=== PATIENT | male | born 1935 | race Caucasian/White ===

== ENCOUNTER 2017-08-14 02:55 | Emergency (ER) | payer OTHER, SELFPAY ==
--- NOTE | 2017-08-14 03:02 | DI.RAD.S_ITS ---
PROCEDURE: XR CHEST 1V INDICATIONS: Shortness of breath and chest pain TECHNIQUE: One view of the chest was acquired. COMPARISON: None. FINDINGS: Surgical changes and devices: Status post CABG. Lungs and pleura: No pleural effusions or pneumothorax. Lungs are clear. Mediastinum: Mediastinal contours appear normal. Heart size is normal. Bones and chest wall: No suspicious bony lesions. Overlying soft tissues appear unremarkable. IMPRESSION: No acute cardiopulmonary disease process. Dictated by: Osiris Dixon MD, PhD on 08/14/2017 at 8:07 Approved by: Osiris Dixon MD, PhD on 08/14/2017 at 8:07
[2017-08-14 03:03] VITALS: BP 150/72; PULSE 65; RESP 14; TEMP 36; O2SAT 100; BMI 24.3
--- NOTE | 2017-08-14 03:03 | ED_ITS ---
HPI - Chest Pain General Chief Complaint: Chest Pain Stated Complaint: chest pressure, shortness of breath, has angina Time Seen by Provider: 08/14/17 03:01 Source: patient Mode of arrival: ambulatory Limitations: no limitations History of Present Illness HPI narrative: 82-year-old male here for evaluation of chest pressure. Patient states that he had a coronary artery bypass graft 28 years ago. He has also had a fem-pop vascular graft in the past. Patient states that he has not had any cardiovascular issue since his bypass graft almost 3 decades ago. Patient states that he normally walks every day. He states that he went on a vacation and did not do his normal walks. Return to those normal walks yesterday. He states that during the walk yesterday he developed chest pressure which resolved when he slowed down and quit. Did not have any other symptoms associated with that and did not have any other symptoms for the rest of the day. He states that he was woken at 1 o'clock this morning with chest pressure. Patient describes it as ?angina. Denies any other symptoms. States that the pressure is a 4/10. Does take an aspirin every day. Is not on Plavix. Is a [id number] diabetic. Related Data Home Medications Medication Instructions Recorded Confirmed aspirin 81 mg PO DAILY 08/14/17 08/14/17 atorvastatin 08/14/17 lisinopril 10 mg PO DAILY 08/14/17 08/14/17 metformin 850 mg PO QID 08/14/17 08/14/17 Previous Rx's Medication Instructions Recorded cephalexin [Keflex] 500 mg PO TID #21 cap 12/17/16 Allergies Allergy/AdvReac Type Severity Reaction Status Date / Time azithromycin [AZITHROMYCIN] Allergy Mild rash Verified 08/14/17 03:10 Penicillins [PENICILLINS] Allergy Mild rash Verified 08/14/17 03:10 Review of Systems Constitutional Denies chills, Denies fever(s), Denies lethargy and Denies weakness ENT Ears, Nose, Mouth, and Throat: Denies vertigo and Denies dizziness Cardiovascular Reports chest pain, Reports chest pain at rest, Reports chest pain with activity , Denies syncope, Denies rapid heart rate, Denies pedal edema, Denies edema, Denies irregular heart rhythm, Denies lightheadedness and Denies dyspnea Respiratory Denies cough, Denies pain on inspiration, Denies pain with cough and Denies dyspnea Gastrointestinal Gastrointestinal: Denies diarrhea, Denies nausea and Denies vomiting Genitourinary Denies dysuria and Denies flank pain Musculoskeletal Denies myalgias and Denies arthralgias Integumentary/Breasts Denies pruritus, Denies erythema, Denies rash and Denies wounds Neurologic Denies abnormal speech, Denies confusion, Denies vertigo, Denies dizziness, Denies syncope and Denies weakness Psychiatric Denies confusion Hematologic/Lymphatic Denies easy bruising [facility] Social History Smoking Status: Former smoker Exam Initial Vital Signs Initial Vital Signs: Vital Signs Temperature 96.8 F L 08/14/17 03:03 Pulse Rate 65 08/14/17 03:03 Respiratory Rate 14 08/14/17 03:03 Blood Pressure 150/72 H 08/14/17 03:03 Pulse Oximetry 100 08/14/17 03:03 Const General: cooperative, healthy appearing, comfortable and well developed Nutritional Appearance: well nourished Orientation: alert, awake, oriented x3 and not confused HENWI Head: normocephalic and atraumatic Ears: external ears normal and TM's normal bilaterally Nose: external nose normal and No nasal discharge Face and sinus: sinuses nontender, face symmetric, no sinus tenderness and No dry mucous membranes Mouth: oral mucosae normal and moist mucous membranes Teeth and gingiva: dentition normal Throat: tonsils normal and uvula midline Chest Chest: normal inspection of the chest Resp Effort & Inspection: normal respiratory effort, able to speak in complete sentences, no respiratory distress and no use of accessory muscles Auscultation: clear to auscultation bilaterally, no rales, no rhonchi and no wheezes Cardio Rate: regular rate Rhythm: regular rhythm Heart Sounds: no click, no gallops, no murmurs and no rubs Pulses: normal peripheral pulses GI Inspection: non-distended Palpation: soft, no hepatosplenomegaly, No guarding, No pulsatile mass and No tender Auscultation: normal bowel sounds Back/Spine/Pelvis Back: No CVA tenderness Skin General: no rashes or lesions noted, No jaundice and No petechiae Other: Well-healed midline surgical scar of his chest consistent with his stated history Will healed bilateral lower extremity scars consistent with stated surgical history Neuro General: alert, oriented x3, gait normal and no focal motor deficits Speech: speech normal Gait: normal gait Motor: muscle tone normal throughout Sensory Exam: no sensory deficits noted Extrem General: full ROM, no clubbing, cyanosis or edema, no pedal edema, no calf tenderness and No edema Course Orders Ordered: ED Orders 08/14/17 03:02 XR chest 1V Stat 08/14/17 03:03 EKG-12 Lead Stat 08/14/17 03:20 B Type Natriuretic Peptide Stat Basic Metabolic Panel Stat Complete Blood Count AUTO DIFF Stat Partial Thromboplastin Time Stat Prothrombin Time INR Stat Troponin I Stat Heparin Sodium/Dextrose (Heparin Drip) 25,000 unit in 500 mls @ 18.507 mls/hr IV CONT SIRI; Protocol Last Admin: 08/14/17 05:07 Dose: 12 units/kg/hr, 18.507 mls/hr Discontinued Medications Aspirin (Aspirin Chew) 324 mg PO NOW ONE Stop: 08/14/17 03:03 Last Admin: 08/14/17 03:21 Dose: 324 mg Heparin Sodium (Porcine) (Heparin) 4,600 unit 60 unit/kg (4600 unit) IV NOW ONE Stop: 08/14/17 04:35 Last Admin: 08/14/17 05:06 Dose: 4,600 unit Nitroglycerin (Nitro-Bid) 1 inch TOP NOW ONE Stop: 08/14/17 03:13 Last Admin: 08/14/17 03:21 Dose: 1 inch Vital Signs - 8 hr 08/14/17 03:03 08/14/17 03:21 08/14/17 03:30 Temperature 96.8 F L Pulse Rate 65 57 L 62 Respiratory Rate 14 12 Blood Pressure 150/72 H 150/67 H Blood Pressure [Left Arm] 140/53 H Pulse Oximetry 100 100 08/14/17 04:27 08/14/17 05:06 Temperature Pulse Rate 57 L 62 Respiratory Rate 14 Blood Pressure 140/54 H Blood Pressure [Left Arm] 141/61 H Pulse Oximetry 99 MDM - Chest Pain Lab Data Attestation: I reviewed the patient's lab results. Result diagrams: 08/14/17 03:20 08/14/17 03:20 Lab Results 08/14/17 08/14/17 08/14/17 Range/Units 03:20 03:20 03:20 WBC 5.1 (4.5-11.0) X10^3/uL RBC 4.36 L (4.5-5.9) X10^6/uL Hgb 13.8 (13.5-17.5) g/dL Hct 40.8 L (41-53) % MCV 93.4 (80-100) fL MCH 31.7 (26-34) PG MCHC 33.9 (30-36) % RDW 13.5 (11.6-14.8) % Plt Count 195 (150-400) X10^3/uL Neut % (Auto) 57.4 (50-75) % Lymph % (Auto) 31.0 (25-40) % [place] % (Auto) 7.4 (3-14) % Eos % (Auto) 3.2 (2-4) % Baso % (Auto) 1.0 (0-2) % Neut # (Auto) 2900 L (4812-5039) /uL PT 11.5 (10.1-12.7) SECONDS INR 1.1 (0.9-1.3) APTT 31 (26.4-36.2) SECONDS Sodium 140 (137-145) mmol/L Potassium 4.3 (3.4-5.1) mmol/L Chloride 101 (98-107) mmol/L Carbon Dioxide 28 (22-32) mmol/L BUN 21 H (9-20) mg/dL Creatinine 0.70 (0.66-1.25) mg/dL Estimated GFR > 60.0 (>60) mL/min BUN/Creatinine Ratio 30.0 H (6-22) Glucose 116 H (80-110) mg/dL Calcium 9.5 (8.4-10.2) mg/dL Troponin I (0.01-0.034) ng/mL B-Natriuretic Peptide 75.7 (<100) 08/14/17 Range/Units 03:20 WBC (4.5-11.0) X10^3/uL RBC (4.5-5.9) X10^6/uL Hgb (13.5-17.5) g/dL Hct (41-53) % MCV (80-100) fL MCH (26-34) PG MCHC (30-36) % RDW (11.6-14.8) % Plt Count (150-400) X10^3/uL Neut % (Auto) (50-75) % Lymph % (Auto) (25-40) % [place] % (Auto) (3-14) % Eos % (Auto) (2-4) % Baso % (Auto) (0-2) % Neut # (Auto) (0997-6242) /uL PT (10.1-12.7) SECONDS INR (0.9-1.3) APTT (26.4-36.2) SECONDS Sodium (137-145) mmol/L Potassium (3.4-5.1) mmol/L Chloride (98-107) mmol/L Carbon Dioxide (22-32) mmol/L BUN (9-20) mg/dL Creatinine (0.66-1.25) mg/dL Estimated GFR (>60) mL/min BUN/Creatinine Ratio (6-22) Glucose (80-110) mg/dL Calcium (8.4-10.2) mg/dL Troponin I 0.183 H* (0.01-0.034) ng/mL B-Natriuretic Peptide (<100) Imaging Data Chest x-ray: Attestation: I personally reviewed and interpreted this imaging study as follows: My impression: Sternal wires in place consistent with stated history Normal size heart No focal consolidation No pleural effusion ECG Data Attestation: I personally reviewed and interpreted this ECG as follows: Prior ECG tracings: not available for review Interpretation: Sinus rhythm Ventricular rate is 60 Right bundle branch block Sinus arrhythmia Normal axis Nonspecific ST T wave changes Core Measures AMI core measures followed: Yes MDM Narrative Medical decision making narrative: Patient with known coronary artery disease and a coronary artery bypass graft 28 years ago. Had chest pressure on exertion yesterday which resolved in return of that chest pressure at 1 o'clock this morning. Patient has pain on arrival was 4/10. Nonischemic EKG. Did receive an aspirin here in the emergency department also received nitroglycerin. Patient's troponin elevated. Patient was placed on a heparin drip. Patient reports his pain improving to a 2/10. Patient is a [place] patient discussed the case with the [place] physician who states that the [facility] in [place] it is full. Discussed the case with Dr. Pizano at [facility] in [facility] who accepts patient in transfer. Patient is stable for transport. I did discuss the plan in the transport with the patient and the was at bedside. They expressed understanding and agreement. Patient expressed resolution of all symptoms after heparin started Discharge Plan Departure Patient Disposition: [facility] Clinical Impression: Non-ST elevated myocardial infarction, Diabetes Prescriptions: No Action cephalexin [Keflex] 500 MG capsule 500 mg PO TID Qty: 21 RF: 0 metformin 850 mg Tablet 850 mg PO QID RF: 0 lisinopril 10 mg Tablet 10 mg PO DAILY RF: 0 aspirin 81 mg Tablet,Chewable 81 mg PO DAILY RF: 0 atorvastatin RF: 0
[2017-08-14 03:21] VITALS: BP 150/67; PULSE 57
[2017-08-14] MEDS: ASPIRIN 81 MG TAB 324 MG PO (03:21)
[2017-08-14] MEDS: NITROGLYCERIN OINT 1 INCH/GM OINT...G. TOP (03:21)
[2017-08-14 03:30] VITALS: BP 140/53; PULSE 62; RESP 12; O2SAT 100
[2017-08-14 03:30] LABS: Add Manual Diff / Slide Review NO; Eosinophils Percent Auto 3.2 % (2-4); Hematocrit 40.8 % (41-53); Hemoglobin 13.8 g/dL (13.5-17.5); Mean Corpuscular HGB Conc 33.9 % (30-36); Mean Corpuscular Hemoglobin 31.7 PG (26-34); Mean Corpuscular Volume 93.4 fL (80-100); Monocytes Percent Auto 7.4 % (3-14); Neutrophils Absolute Auto 2900 /uL (3000-5900); Neutrophils Percent Auto 57.4 % (50-75); Platelet Count 195 X10^3/uL (150-400); Red Blood Cell Count 4.36 X10^6/uL (4.5-5.9); Red Cell Distribution Width 13.5 % (11.6-14.8); White Blood Cell Count 5.1 X10^3/uL (4.5-11.0)
[2017-08-14 03:35] LABS: INR 1.1 (0.9-1.3); Prothrombin Time 11.5 SECONDS (10.1-12.7)
[2017-08-14 03:38] LABS: Blood Urea Nitrogen 21 mg/dL (9-20); Calcium 9.5 mg/dL (8.4-10.2); Carbon Dioxide 28 mmol/L (22-32); Chloride 101 mmol/L (98-107); Estimated Glomerular Filt Rate > 60.0 mL/min (>60); Glucose 116 mg/dL (80-110); HEMOLYSIS < 15 (0-50); Potassium 4.3 mmol/L (3.4-5.1); Sodium 140 mmol/L (137-145)
[2017-08-14 03:46] LABS: PTT Partial Thromboplastin Tim 31 SECONDS (26.4-36.2)
[2017-08-14 03:55] LABS: B Type Natriuretic Peptide 75.7 (<100)
[2017-08-14 04:24] LABS: Troponin I 0.183 ng/mL (0.01-0.034)
[2017-08-14 04:27] VITALS: BP 140/54; PULSE 57
[2017-08-14 05:06] VITALS: BP 141/61; PULSE 62; RESP 14; O2SAT 99
[2017-08-14] MEDS: HEPARIN 5,000 UNIT/ML VIAL 4600 UNIT IV (05:06)
[2017-08-14] MEDS: HEPARIN DRIP 25,000 UNIT/500 ML IV.SOLN 18.507 UNIT IV (05:07)
[2017-08-14 06:53] VITALS: BP 160/80; PULSE 62; RESP 16; O2SAT 98
== END 2017-08-14 06:56 | disposition short-term general hospital (02) ==
PROVIDERS: Emergency Provider Emergency Medicine; Family Provider Internal Medicine; PCP Internal Medicine
DX: I21.4 Non-ST elevation (NSTEMI) myocardial infarction (principal); E11.9 Type 2 diabetes mellitus without complications
CPT/HCPCS: 36591; 71045; 80048; 83880; 84484; 85025; 85610; 85730; 93005; 96374; 99283; 99285; J1644

== ENCOUNTER 2019-02-23 09:07 | Emergency (ER) | payer OTHER, SELFPAY ==
[2019-02-23 09:19] VITALS: BP 161/50; PULSE 50; RESP 17; TEMP 36.6; O2SAT 100; BMI 24.8
--- NOTE | 2019-02-23 09:20 | ED_ITS ---
HPI - Syncope General Chief Complaint: Fall Stated Complaint: black out and fall/rt side brusing and cut elbow Time Seen by Provider: 02/23/19 09:16 Source: patient Mode of arrival: Ambulatory Limitations: no limitations History of Present Illness HPI narrative: Patient is an 83-year-old male history of coronary artery disease presenting after syncopal episode. He states he was walking into the garage to go to congregational. He felt dizzy lightheaded he fell against a countertop injuring right side of his chest. Says he did not hit his head he called out to his who came out. No loss of consciousness he has no chest pain or heart palpitations. He is noted to be bradycardic with heart rate in the 40s. He s tates that his heart rate is always in the 40s and sometimes blood pressure is a little off too. He also sustained an injury to his right elbow he has a skin tear. MD complaint: collapsed Related Data Home Medications Medication Instructions Recorded Confirmed aspirin 81 mg PO DAILY 08/14/17 07/08/18 lisinopril 10 mg PO DAILY 08/14/17 07/08/18 atorvastatin 80 mg tablet 80 mg PO DAILY 06/03/18 07/08/18 clopidogrel 75 mg tablet 75 mg PO DAILY 06/03/18 07/08/18 isosorbide dinitrate 30 mg tablet 30 mg PO DAILY tab 06/03/18 07/08/18 metformin 850 mg tablet 850 mg PO TID tab 06/03/18 07/08/18 metoprolol tartrate 25 mg tablet 25 mg PO DAILY tab 06/03/18 07/08/18 nitroglycerin 0.4 mg sublingual 0.4 mg SL Q5-15M PRN 06/03/18 07/08/18 tablet Allergies Allergy/AdvReac Type Severity Reaction Status Date / Time azithromycin [AZITHROMYCIN] Allergy Mild rash Verified 07/08/18 16:38 Penicillins [PENICILLINS] Allergy Mild rash Verified 07/08/18 16:38 Review of Systems Review of Systems ROS Unobtainable: All systems reviewed & are unremarkable except as noted in HPI and below Constitutional Constitutional: Denies chills, Denies fever(s), Denies lethargy and Denies weakness Eyes Eyes: Denies change in vision, Denies eye discharge, Denies irritation and Denies loss of vision ENT Ears, Nose, Mouth, and Throat: Denies change in voice, Denies neck pain and Denies sore throat Cardiovascular Cardiovascular: Reports syncope, Denies dyspnea and Denies dyspnea on exertion Respiratory Respiratory: Denies cough, Denies dyspnea, Denies dyspnea on exertion and Denies wheezing Gastrointestinal Gastrointestinal: Denies abdominal pain, Denies change in bowel habits, Denies diarrhea, Denies nausea and Denies vomiting Genitourinary Genitourinary: Denies hematuria, Denies flank pain, Denies urinary incontinence and Denies urinary urgency Musculoskeletal Musculoskeletal: Denies neck pain Integumentary/Breasts Skin/Breast: Denies pruritus, Denies erythema, Denies rash and Denies wounds Neurologic Neurologic: Reports syncope, Denies loss of vision and Denies weakness Allergic/Immunologic Allergic/Immunologic: Denies wheezing Patient History Medical History Coronary artery disease (Acute) Social History Smoking Status: Former smoker Smoking Status: Former smoker alcohol intake frequency: 0-2 drinks per day Exam Initial Vital Signs Initial Vital Signs: Vital Signs Temperature 97.9 F 02/23/19 09:19 Pulse Rate 50 L 02/23/19 09:19 Respiratory Rate 17 02/23/19 09:19 Blood Pressure 161/50 H 02/23/19 09:19 Pulse Oximetry 100 02/23/19 09:19 GENERAL: Alert well-appearing elderly male no acute distress HEENT: Head abrasion noted posterior head patient states that happened yesterday when he scraped the top of the head getting into his car,EOMI, pupils reactive, face symmetric, CARDIOVASCULAR: Regular rate and rhythm without murmurs, rubs or gallops. RESPIRATORY: Breath sounds equal bilaterally, no wheezes rales or rhonchi. ABDOMEN: Soft, nontender. Normoactive bowel sounds all 4 quadrants. No guarding or rebound. EXTREMITIES: Normal range of motion, no clubbing or edema. Neurovascularly intact NEUROLOGICAL: Alert and oriented x4.Normal gait and speech. Cranial nerves II through XII grossly intact. Good [id number], good [id number], strength equal bilaterally, no dysarthria or aphasia, sensation in tact to soft touch bilaterally, no visual changes, no facial droop SKIN: Skin tear good skin approximation on right elbow no other signs injury he'd have old scabbed over abrasion the top of the head Scores NIH Stroke Scale Level of Conciousness: Alert, keenly responsive Ask month/age: Answers both questions correctly. Open/close eyes, close hand: Performs both tasks correctly Best gaze horizontal: Normal Visual mcrae: No visual loss Facial palsy: Normal symetrical movement Left arm drift: No drift for full 10 sec Right arm drift: No drift for full 10 sec Left leg drift: No drift for full 10 sec Right leg drift: No drift for full 10 sec Limb ataxia: Absent Sensory on face/arms/legs: Normal, no sensory loss Best language: No aphasia, normal Dysarthria: Normal Extinction or inattention: No abnormality Total NIH Stroke scale score: 0 Course Orders Ordered: ED Orders 02/23/19 09:36 XR ribs RT min 3V w CXR1V Stat 02/23/19 09:37 CT head/brain wo con Stat Complete Blood Count AUTO DIFF Stat Comprehensive Metabolic Panel Stat Troponin & CK Cardiac Panel Stat Discontinued Medications Sodium Chloride (Normal Saline 0.9%) 1,000 mls @ 150 mls/hr IV CONT SIRI Last Admin: 02/23/19 11:28 Dose: Not Given Documented by: DARYN Vital Signs Vital signs: Vital Signs - 8 hr 02/23/19 09:19 02/23/19 10:20 02/23/19 11:38 Temperature 97.9 F Pulse Rate 50 L 45 L 44 L Respiratory Rate 17 14 19 Blood Pressure 161/50 H Blood Pressure [Left Arm] 123/49 L 130/91 H Pulse Oximetry 100 100 100 MDM - Syncope Lab Data Attestation: I reviewed the patient's lab results. Result diagrams: 02/23/19 09:37 02/23/19 09:37 Labs: Lab Results 02/23/19 02/23/19 Range/Units 09:37 09:37 WBC 6.0 (4.5-11.0) X10^3/uL RBC 4.07 L (4.5-5.9) X10^6/uL Hgb 12.7 L (13.5-17.5) g/dL Hct 37.8 L (41-53) % MCV 92.9 (80-100) fL MCH 31.1 (26-34) PG MCHC 33.5 (30-36) % RDW 14.1 (11.6-14.8) % Plt Count 183 (150-400) X10^3/uL Neut % (Auto) 83.2 H (50-75) % Lymph % (Auto) 10.0 L (25-40) % [place] % (Auto) 5.3 (3-14) % Eos % (Auto) 1.2 L (2-4) % Baso % (Auto) 0.3 (0-2) % Neut # (Auto) 5000 (2743-0707) /uL Lymph # (Auto) 600 L (2544-7640) /uL [place] # (Auto) 300 (0-900) /uL Eos # (Auto) 100 (0-450) /uL Baso # (Auto) 0 (0-100) /uL Sodium 141 (137-145) mmol/L Potassium 4.4 (3.4-5.1) mmol/L Chloride 105 (98-107) mmol/L Carbon Dioxide 31 (22-32) mmol/L BUN 14 (9-20) mg/dL Creatinine 0.70 (0.66-1.25) mg/dL Estimated GFR > 60.0 (>60) mL/min BUN/Creatinine Ratio 20.0 (6-22) Glucose 228 H (80-110) mg/dL Calcium 9.4 (8.4-10.2) mg/dL Total Bilirubin 0.4 (0.2-1.3) mg/dL AST 96 H (17-59) IU/L ALT 78 H (<50) IU/L Alkaline Phosphatase 63 (38-126) U/L Total Creatine Kinase 101 (55-170) U/L CK-MB (CK-2) 3.63 H (<2.37) ng/mL CK-MB (CK-2) Rel Index 3.6 (1.5-5.0) % Troponin I < 0.012 (0.01-0.034) ng/mL Total Protein 6.2 L (6.3-8.2) g/dL Albumin 3.8 (3.5-5.0) g/dL Globulin 2.4 (1.7-4.1) g/dL Albumin/Globulin Ratio 1.6 (1.0-2.8) Imaging Data CT scan - head: Radiologist's impression: PROCEDURE: CT HEAD/BRAIN WO CON INDICATIONS: syncope TECHNIQUE: Noncontrast 4.5 mm thick angled axial sections acquired from the foramen magnum to the vertex, with coronal and sagittal reformats. For radiation dose reduction, the following was used: automated exposure control, adjustment of mA and/or kV according to patient size. COMPARISON: None. FINDINGS: Image quality: Excellent. CSF spaces: Basal cisterns are patent. No extra-axial fluid collections. The ventricles are symmetric in size and shape. Brain: No intracranial bleeds or masses. There is marked cerebral volume loss for age, with resultant ventricular and sulcal prominence. There are periventricular and deep white matter chronic small vessel ischemic changes. There is intracranial internal carotid artery atherosclerosis. 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 Calvarium and visualized facial bones appear intact, without suspicious lesions. Sinuses: There is a small right maxillary sinus mucus retention cyst. Visualized sinuses and mastoids are otherwise clear. IMPRESSION: 1. No acute intracranial findings. 2. Findings likely associated with chronic microvascular ischemic changes. Dictated by: Chantelle Singh M.D. on 02/23/2019 at 9:26 Rib x-ray: Radiologist's impression: PROCEDURE: XR RIBS RT MIN 3V W CXR 1V INDICATIONS: fall pain TECHNIQUE: 3 views of the right ribs were acquired, along with a single view chest. COMPARISON: None. FINDINGS: Surgical changes and devices: None. Bones and chest wall: No focal air space opacities. Subtle reticular opacities in the mid and lower lung suggests underlying fibrotic changes. Lungs and pleura: No pleural effusions or pneumothorax. Lungs appear clear. Mediastinum: The patient is status post median sternotomy and CABG. Mediastinal contours appear normal. Heart size is normal. IMPRESSION: 1. No visualized displaced rib fractures. 2. No acute cardiopulmonary findings. Dictated by: Chantelle Singh M.D. on 02/23/2019 at 9:10 ECG Data Attestation: I personally reviewed and interpreted this ECG as follows: Prior ECG tracings: available for review Interpretation: Sinus rhythm rate [address] changes and no T-wave inversions right bundle-branch block noted similar to previous EKG MDM Narrative Medical decision making narrative: Patient has ambulation trial he is not dizzy lightheaded no focal deficits. He is persistently bradycardic in the 40s which he continues to say is normal for him. It is unclear cause a syncopal episode today. Recommend outpatient follow-up. Discharge Plan Departure Patient Disposition: Home Clinical Impression: Syncope Qualifiers: Syncope type: unspecified Qualified Code(s): R55 - Syncope and collapse Discharge Date/Time: 02/23/19 11:46 Instructions: DI for Syncope in Adults (Fainting) Activity Restrictions/Additional Instructions: *You have been diagnosed with fainting *What to do: You may require further testing with her primary care provider, at this time CT scan and blood work overall are reassuring *Continue to take medications as directed *Follow up with your primary care provider in 2-3 days *Return to ER if you should have recurrent episode of passing out chest pain heart palpitations weakness numbness take or any new, worsening or concerning symptoms Prescriptions: No Action lisinopril 10 mg Tablet 10 mg PO DAILY RF: 0 aspirin 81 mg Tablet,Chewable 81 mg PO DAILY RF: 0 metformin 850 mg tablet 850 mg PO TID RF: 0 atorvastatin 80 mg tablet 80 mg PO DAILY RF: 0 clopidogrel 75 mg tablet 75 mg PO DAILY RF: 0 isosorbide dinitrate 30 mg tablet 30 mg PO DAILY RF: 0 metoprolol tartrate 25 mg tablet 25 mg PO DAILY RF: 0 nitroglycerin 0.4 mg tablet, sublingual 0.4 mg SL Q5-15M PRNRF: 0 Referrals: Areli Grant MD [Primary Care Provider] -
--- NOTE | 2019-02-23 09:36 | DI.RAD.S_ITS ---
PROCEDURE: XR RIBS RT MIN 3V W CXR 1V INDICATIONS: fall pain TECHNIQUE: 3 views of the right ribs were acquired, along with a single view chest. COMPARISON: None. FINDINGS: Surgical changes and devices: None. Bones and chest wall: No focal air space opacities. Subtle reticular opacities in the mid and lower lung suggests underlying fibrotic changes. Lungs and pleura: No pleural effusions or pneumothorax. Lungs appear clear. Mediastinum: The patient is status post median sternotomy and CABG. Mediastinal contours appear normal. Heart size is normal. IMPRESSION: 1. No visualized displaced rib fractures. 2. No acute cardiopulmonary findings. Dictated by: Chantelle Singh M.D. on 02/23/2019 at 9:10 Approved by: Chantelle Singh M.D. on 02/23/2019 at 9:12
--- NOTE | 2019-02-23 09:37 | DI.CT.S_ITS ---
PROCEDURE: CT HEAD/BRAIN WO CON INDICATIONS: syncope TECHNIQUE: Noncontrast 4.5 mm thick angled axial sections acquired from the foramen magnum to the vertex, with coronal and sagittal reformats. For radiation dose reduction, the following was used: automated exposure control, adjustment of mA and/or kV according to patient size. COMPARISON: None. FINDINGS: Image quality: Excellent. CSF spaces: Basal cisterns are patent. No extra-axial fluid collections. The ventricles are symmetric in size and shape. Brain: No intracranial bleeds or masses. There is marked cerebral volume loss for age, with resultant ventricular and sulcal prominence. There are periventricular and deep white matter chronic small vessel ischemic changes. There is intracranial internal carotid artery atherosclerosis. 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 Calvarium and visualized facial bones appear intact, without suspicious lesions. Sinuses: There is a small right maxillary sinus mucus retention cyst. Visualized sinuses and mastoids are otherwise clear. IMPRESSION: 1. No acute intracranial findings. 2. Findings likely associated with chronic microvascular ischemic changes. Dictated by: Chantelle Singh M.D. on 02/23/2019 at 9:26 Approved by: Chantelle Singh M.D. on 02/23/2019 at 9:29
[2019-02-23 09:49] LABS: Add Manual Diff / Slide Review NO; Basophils Absolute Auto 0 /uL (0-100); Basophils Percent Auto 0.3 % (0-2); Eosinophils Absolute Auto 100 /uL (0-450); Eosinophils Percent Auto 1.2 % (2-4); Hematocrit 37.8 % (41-53); Hemoglobin 12.7 g/dL (13.5-17.5); Lymphocytes Absolute Auto 600 /uL (1100-4500); Mean Corpuscular HGB Conc 33.5 % (30-36); Mean Corpuscular Hemoglobin 31.1 PG (26-34); Mean Corpuscular Volume 92.9 fL (80-100); Monocytes Absolute Auto 300 /uL (0-900); Monocytes Percent Auto 5.3 % (3-14); Neutrophils Absolute Auto 5000 /uL (1500-7000); Neutrophils Percent Auto 83.2 % (50-75); Platelet Count 183 X10^3/uL (150-400); Red Blood Cell Count 4.07 X10^6/uL (4.5-5.9); Red Cell Distribution Width 14.1 % (11.6-14.8)
[2019-02-23 09:57] LABS: Alanine Aminotransferase 78 IU/L (<50); Albumin 3.8 g/dL (3.5-5.0); Albumin Globulin Ratio 1.6 (1.0-2.8); Alkaline Phosphatase 63 U/L (38-126); Aspartate Aminotransferase 96 IU/L (17-59); Bilirubin Total 0.4 mg/dL (0.2-1.3); Blood Urea Nitrogen 14 mg/dL (9-20); Calcium 9.4 mg/dL (8.4-10.2); Carbon Dioxide 31 mmol/L (22-32); Chloride 105 mmol/L (98-107); Creatine Kinase 101 U/L (55-170); Estimated Glomerular Filt Rate > 60.0 mL/min (>60); Globulin 2.4 g/dL (1.7-4.1); Glucose 228 mg/dL (80-110); HEMOLYSIS < 15 (0-50); Potassium 4.4 mmol/L (3.4-5.1); Sodium 141 mmol/L (137-145); Total Protein 6.2 g/dL (6.3-8.2)
[2019-02-23 10:08] LABS: Troponin I < 0.012 ng/mL (0.01-0.034)
[2019-02-23 10:12] LABS: CKMB % Relative Index 3.6 % (1.5-5.0); Creatine Kinase MB 3.63 ng/mL (<2.37)
[2019-02-23 10:20] VITALS: BP 123/49; PULSE 45; RESP 14; O2SAT 100
[2019-02-23 11:38] VITALS: BP 130/91; PULSE 44; RESP 19; O2SAT 100
--- NOTE | 2019-02-23 11:40 | PC.NURSE ---
Ambulated with Vignesh Kowalski without any difficulty . Dr. Santana aware.
== END 2019-02-23 11:46 | disposition home or self-care (01) ==
PROVIDERS: Emergency Provider Emergency Medicine; PCP Internal Medicine
DX: R55 Syncope and collapse (principal); S50.311A Abrasion of right elbow, initial encounter
CPT/HCPCS: 36415; 70450; 71101; 80053; 82550; 82553; 84484; 85025; 93005; 94760; 99284; 99285